=== PATIENT | female | born 1980 | race Caucasian/White ===

== ENCOUNTER 2016-03-25 04:54 | Inpatient (IN) | payer SELFPAY ==
[~2016-03-25] VITALS: Ht 165.1 cm; Wt 86.2 kg
[~2016-03-25 04:54] MED LIST: IBUP-1149 PO
[2016-03-25] MEDS ORDERED: Oxytocin 10 Unit/mL Inj IM PRN ×2 (07:50→16:25)
[2016-03-25] MEDS ORDERED: Lactated Ringer's 1,000 ML IV PRN (07:50)
[2016-03-25] MEDS ORDERED: Sodium Chloride LOK Flush 10 mL Syringe IVFLUSH PRN (07:50)
[2016-03-25] MEDS ORDERED: Methylergonovine 0.2 mg/mL Inj IM PRN ×2 (07:50→16:25)
[2016-03-25] MEDS ORDERED: Oxytocin 30 Units/500 mL LR 30 UNITS in IV Premix 1 EACH IV PRN ×3 (07:50→16:25)
[2016-03-25] MEDS ORDERED: Carboprost 250 mCg/mL Inj IM PRN ×2 (07:50→16:25)
[2016-03-25] MEDS ORDERED: Hemorrhage Kit, Post Partum XX ONE ×2 (07:50→16:25)
[2016-03-25 08:01] LABS: Mean Corpuscular Volume 70.7 fL (81-100)
[2016-03-25] MEDS: Lactated Ringer's 1,000 ML IV SCH ×2 (08:27→13:43)
[2016-03-25] MEDS ORDERED: Lactated Ringer's 1,000 ML IV SCH (16:22)
[2016-03-25] MEDS ORDERED: Witch Hazel-Glycerin Pads TOPICAL PRN (16:25)
[2016-03-25] MEDS ORDERED: Benzocaine (Dermoplast) 20% 60 Gm Spray TOPICAL PRN (16:25)
[2016-03-25] MEDS ORDERED: HYDROcodone-APAP 5-325 mg Tablet PO PRN (16:25)
[2016-03-26 07:03] LABS: Mean Corpuscular Hemoglobin 21.4 pg (27.0-35.0); Mean Corpuscular Volume 72.1 fL (81-100)
--- NOTE | 2016-03-26 09:22 | PCM.OBVAG ---
Vaginal Delivery Date of Service Mar 25, 2016 Pre Operative Diagnosis Pre Operative Diagnosis @ 43 weeks EGA (Post Dates Induction) Post Operative Diagnosis Post Operative Diagnosis Same Procedure Procedure: 1. Induction of labor 2. NVD 3. 1st degree midline perineal repair. Obstetical Procedure: Repair of Perineal Tear (1st degree), Other (NVD) Laborer Rags/Offset Assistant Press Operator Provider and Offset Assistant Press Operator: Chemo Hatch MD Indication for Procedure Indication for Procedure Post Dates at 43 weeks and decreased GAURAV to 10cm from 14 cm days before. Induction: Induction of labor (With pitocin only) Findings Obstetrical Findings: (Male), Cord (3 Vessel), Weight (9lb7oz), Presentation (ANG), 1 minute (9), 5 minutes (9), 10 minutes (9 ), Placenta (Intact/Normal), Perineal Laceration (1st degree) Analgesia/Medications Procedural Analgesia: None except local with repair Obstetrical Anesthesia: Local Procedure Details Procedure Details Induction was started at 0800 and progressed from 2-3 cm over 4 hours. AROM was clear fluid. Progressed rapidly to complete over the next 2 hours. Pushed for about 10 minutes. Pitocin running the whole time. Fetus reactive and reassuring. Nuchal cord reduced. Placenta delivered without incident after five minutes. Counts correct x 2. Uterus firm. Time of delivery was around 4: 15 pm. See record for detail. Specimen Specimens: Placenta IV Intake/Output Catheters: None Blood Loss & Administration Estimated Blood Loss: 300 Blood Admin during procedure: No Post Procedure Plan Post Procedure Plan Routine post care with pitocin for uterine tone Post delivery Condition: Mom stable copies to: Selvin Coronado MD, David B MD Mar 26, 2016 09:22
--- NOTE | 2016-03-26 09:24 | PCM.DC.OB ---
Obstetrical Discharge Summary Date of Service Mar 26, 2016 Date of hospital admission Mar 25, 2016 at 07:06 Date of Discharge: Mar 26, 2016 Providers Admitting Physician: Chemo Hatch MD Primary Care Physician: Marleny Cross MD Attending Physician: Chemo Hatch MD Problems: (1) Status post normal vaginal delivery Status: Acute ICD Code: [id number] Consultations None Invasive procedures NVD Date of Procedure: Mar 25, 2016 Hospital Course: Patient admitted for induction. NVD. Excellent recovery. No complications. IBUPROFEN-Expunged Drug, Do Not Renew! (IBUPROFEN-Expunged Drug, Do Not Renew!) 600 Mg Tablet 600 MG PO Q6HP FOR FEVER OR PAIN Prescribed by: MARLENY CROSS MD Disposition Home Follow-up plan 6 weeks with me Discharge Diet: No restrictions Discharge Activity-General: Pelvic Rest for 6 weeks, Pelvic Rest, Try not to overdue, Be up and about, Balance rest and activity, No lifting >15 pounds for 2 weeks copies to: Selvin Coronado MD, David B MD Mar 26, 2016 09:24
--- NOTE | 2016-03-26 09:25 | PCM.DIOB ---
Obstetrical Disch Instruction Date of Service: Mar 26, 2016 Dates of Hospitalization Date of Hospital Admission Mar 25, 2016 at 07:06 Providers Admitting Physician: Chemo Hatch MD Primary Care Physician: Eunice Bravo MD Attending Physician: Chemo Hatch MD Discharge Diagnosis Problems: (1) Status post normal vaginal delivery Status: Acute ICD Code: [id number] Diet Discharge Diet: No restrictions Activity Discharge Activity-General: Pelvic Rest for 6 weeks, Balance rest and activity , Activity as pain allows, No lifting >15 pounds for 2 weeks Dressing and Incisional Care Hygiene: May shower, Perineal care, Sitz bath, Dermoplast spray, Witch Jeaneth pads Follow Up Plan Follow-up Provider (F9): Chemo Hatch MD Follow-up appointment: Weeks (6) Call your provider for: Fever or Chills, Heavy vaginal bleeding, Excessive constipation, Vaginal discomfort, Red painful breasts Chemo Hatch MD Mar 26, 2016 09:25
[2016-03-26] MEDS ORDERED: LANOlin HPA 7 Gm Ointment TOPICAL PRN (10:55)
[2016-03-26 15:37] VITALS: BP 107/59; PULSE 97; RESP 18
== END 2016-03-26 17:26 | disposition home or self-care (01) | DRG 775 ==
LOC: FBC 07:06
PROVIDERS: ADMIT Family Medicine; ATTEND Family Medicine
PROC: 10E0XZZ Delivery of Products of Conception, External Approach (ICD-10-PCS; principal; 2016-03-25)
PROC: 0HQ9XZZ Repair Perineum Skin, External Approach (ICD-10-PCS; 2016-03-25)
PROC: 10907ZC Drainage of Amniotic Fluid, Therapeutic from Products of Conception, Via Natural or Artificial Opening (ICD-10-PCS; 2016-03-25)
PROC: 3E033VJ Introduction of Other Hormone into Peripheral Vein, Percutaneous Approach (ICD-10-PCS; 2016-03-25)
DX: O70.0 First degree perineal laceration during delivery (principal); Z3A.49 Greater than 42 weeks gestation of pregnancy; O48.0 Post-term pregnancy; O69.81X1 Labor and delivery complicated by cord around neck, without compression, fetus 1; Z37.0 Single live birth